=== PATIENT | female | born 1950 | race Caucasian/White ===

== ENCOUNTER 2020-09-17 14:41 | Emergency (ER) | payer MEDICARE ==
[2020-09-17] MEDS ORDERED: Proparacaine 0.5% Ophth Soln 15 ML Bottle EYEBOTH STA (15:40)
--- NOTE | 2020-09-17 15:53 | EDM.PDOC ---
ED HPI GENERAL MEDICAL PROBLEM - General Chief Complaint: Eye Problems Stated Complaint: MAYBE PART OF CONTACT IN LEFT EYE Time Seen by Provider: 09/17/20 14:49 Source of Information: Reports: Patient, RN Notes Reviewed History Limitations: Reports: No Limitations - History of Present Illness INITIAL COMMENTS - FREE TEXT/NARRATIVE: 70-year-old female presents emergency department today with concern about a portion of her contact remaining in her left eye. She did remove the contact noticed that up portion of it was missing her eye does feel like there is a foreign body in there she has had no change in vision left eye Pain Score (Numeric/FACES): 1 - Related Data Allergies Allergy/AdvReac Type Severity Reaction Status Date / Time Penicillins Allergy Mouth Sores Verified 09/17/20 15:04 Home Meds: Home Meds Acyclovir 200 mg PO DAILY 09/17/20 [History] Ramipril 10 mg PO DAILY 09/17/20 [History] Sertraline [Zoloft] 50 mg PO DAILY 09/17/20 [History] atorvaSTATin [Lipitor] 20 mg PO BEDTIME 09/17/20 [History] Past Medical History Cardiovascular History: Reports: High Cholesterol RESIDENTIAL TREATMENT STAFF History: Reports: Psychiatric History: Reports: Depression - Infectious Disease History Infectious Disease History: Reports: Chicken Pox, Measles, Mumps - Past Surgical History Cardiovascular Surgical History: Reports: Coronary Artery Bypass Social & Family History - Tobacco Use Tobacco Use Status *Q: Never Tobacco User - Recreational Drug Use Recreational Drug Use: No ED ROS GENERAL - Review of Systems Review Of Systems: See Below HEENT: Reports: Eye Discharge, Eye Pain ED EXAM GENERAL W FULL EYE - Physical Exam Exam: See Below Exam Limited By: No Limitations General Appearance: Alert Eye Exam: Bilateral Eye: EOMI, Normal Inspection, PERRL Eyelids: Left: Normal Appearance Conjunctiva & Sclera: Left: Normal Appearance Cornea Exam: Left: Normal Appearance, Examined with Flourescein Extraocular Movements: Bilateral: Intact Pupillary Size: Bilateral: 4 mm Pupillary Reaction: Bilateral: Brisk Anterior Chamber: Left: Normal Appearance Course - Vital Signs Last Recorded V/S: Last Vital Signs Temp 97.5 F 09/17/20 15:09 Pulse 75 09/17/20 15:09 Resp 14 09/17/20 15:09 BP 160/73 H 09/17/20 15:09 Pulse Ox 97 09/17/20 15:09 - Orders/Labs/Meds Meds: Medications Discontinued Medications Generic Name Dose Route Start Last Admin Trade Name Tayler PRN Reason Stop Dose Admin Proparacaine HCl 1 ml 09/17/20 15:40 Proparacaine 0.5% Ophth Soln 15 Ml Bottle EYEBOTH 09/17/20 15:41 NOW STA Departure - Departure Time of Disposition: 15:52 Disposition: Home, Self-Care 01 Condition: Fair Clinical Impression: Sensation of foreign body in eye - Discharge Information Instructions: Eye Foreign Body, [id number] Referrals: PCP,None [Primary Care Provider] - Additional Instructions: Follow-up with your eye care provider in the next 2 to 3 days if no improvement Sepsis Event Note (ED) - Evaluation Sepsis Screening Result: No Definite Risk - Focused Exam Vital Signs: Vital Signs Temp Pulse Resp BP Pulse Ox 09/17/20 15:09 97.5 F 75 14 160/73 H 97 09/17/20 14:59 97.5 F 75 14 160/73 H 97 - Assessment/Plan Plan: Assessment Acuity = acute Site and laterality = foreign body sensation left eye Etiology = unknown Manifestations = none Location of injury = Home Lab values = none Plan Follow-up with eye care provider in the next 2 to 3 days if no improvement This note was dictated using [employer] voice recognition software please call with any questions on syntax or grammar.
== END 2020-09-17 15:58 | disposition home or self-care (01) ==
LOC: JP.ED 14:41
DX: Z03.823 Encounter for observation for suspected inserted (injected) foreign body ruled out (principal); E78.00 Pure hypercholesterolemia, unspecified; Z88.0 Allergy status to penicillin; Z79.899 Other long term (current) drug therapy
CPT/HCPCS: 99283; A9270